=== PATIENT | male | born 1960 | race Two or more races ===

== ENCOUNTER 2018-08-01 19:15 | Emergency (ER) | payer SELFPAY ==
[~2018-08-01] VITALS: Ht 172.7 cm; Wt 68.0 kg
[2018-08-01 22:41] VITALS: BP 114/71
[2018-08-01] MEDS ORDERED: cefTRIAXone SOD 1,000 MG VL IM ONE (23:30)
[2018-08-01] MEDS ORDERED: HYDROcodone-ACET 10/325MG TAB PO ONE (23:30)
== END 2018-08-02 00:20 | disposition home or self-care (01) ==
LOC: ER 19:26
DX: H66.93 Otitis media, unspecified, bilateral (principal); R07.81 Pleurodynia
CPT/HCPCS: 71101; 96372; 99284; J0696